=== PATIENT | male | born 2000 | race Caucasian/White ===

== ENCOUNTER 2021-01-02 04:57 | Emergency (ER) | payer OTHER ==
[~2021-01-02] VITALS: Ht 182.9 cm; Wt 88.6 kg
--- NOTE | 2021-01-02 06:21 | NUR ---
report given to Meron CANSECO
[2021-01-02 06:50] VITALS: BP 112/76
== END 2021-01-02 06:52 | disposition home or self-care (01) ==
LOC: ER 04:58
DX: G40.909 Epilepsy, unspecified, not intractable, without status epilepticus (principal); R41.0 Disorientation, unspecified; R55 Syncope and collapse
CPT/HCPCS: 70450; 93005; 99284